=== PATIENT | female | born 1990 | race Caucasian/White ===

== ENCOUNTER 2020-05-26 00:22 | Emergency (ER) | payer OTHER ==
[2020-05-26 00:36] VITALS: BMI 21.9
[2020-05-26] MEDS ORDERED: DIPHTH,PERTUSS(ACELL),TET 0.5 ML DISP.SYRIN IM ONE ×2 (01:07→01:26)
[2020-05-26] MEDS ORDERED: ACETAMINOPHEN 325 MG TABLET (FP) PO ONE (01:08)
[2020-05-26] MEDS ORDERED: ACETAMINOPHEN 325 MG TABLET (FP) ONE (01:26)
[2020-05-26] MEDS ORDERED: CLINDAMYCIN 600MG PREMIX IVPB 600 MG/50 ML BAG IVPB ONE ×2 (01:29→02:13)
[2020-05-26 02:31] LABS: BASO % 0.6 % (0-2.0); EOS % 3.8 % (0-4.5); HEMATOCRIT 28.6 % (32.4-45.2); HEMOGLOBIN 9.7 GM/dL (10.7-15.3); LYMPH % 18.5 % (8-40); MCH 27.8 pg (25.7-33.7); MCHC 33.8 g/dl (32.0-36.0); MEAN CELL VOLUME 82.2 fl (80-96); MONO % 10.4 % (3.8-10.2); NEUT % 66.7 % (42.8-82.8); PLATELET COUNT 171 K/MM3 (134-434); RBC 3.48 M/mm3 (3.60-5.2); WHITE BLOOD COUNT 7.4 K/mm3 (4.0-10.0)
[2020-05-26 02:38] LABS: INR 0.97 (0.83-1.09); PROTHROMBIN TIME (PATIENT) 11.8 SEC (9.7-13.0)
[2020-05-26 02:41] LABS: ACTIVATED PTT 29.9 SECONDS (25.2-36.5)
[2020-05-26 02:53] LABS: POTASSIUM 3.4 mmol/L (3.5-5.1)
[2020-05-26 02:56] LABS: BLOOD UREA NITROGEN 12.1 mg/dL (7-18)
[2020-05-26 02:59] LABS: CREATININE 0.7 mg/dL (0.55-1.3)
[2020-05-26 03:01] LABS: BILIRUBIN,TOTAL 0.4 mg/dL (0.2-1)
[2020-05-26] MEDS ORDERED: KETOROLAC TROMETHAMINE 15 MG/ML VIAL IVPUSH ONE (03:45)
[2020-05-26] MEDS ORDERED: KETOROLAC TROMETHAMINE 15 MG/ML VIAL ONE (03:49)
[2020-05-26 04:14] LABS: HIV INTERPRETATION NEGATIVE (NEGATIVE)
[2020-05-26 09:08] VITALS: BP 114/82; PULSE 85; TEMP 98.5
== END 2020-05-26 09:04 | disposition short-term general hospital (02) ==
LOC: JER 00:22
PROC: 3E03329 Introduction of Other Anti-infective into Peripheral Vein, Percutaneous Approach (ICD-10-PCS; principal; 2020-05-26)
PROC: 3E0333Z Introduction of Anti-inflammatory into Peripheral Vein, Percutaneous Approach (ICD-10-PCS; 2020-05-26)
DX: S61.011A Laceration without foreign body of right thumb without damage to nail, initial encounter (principal); L08.9 Local infection of the skin and subcutaneous tissue, unspecified; R79.82 Elevated C-reactive protein (CRP)
CPT/HCPCS: 36415; 73140-TC-RT-FY; 80053; 84703; 85025; 85610; 85730; 86140; 87040; 87389; 90715; 99285-25

== ENCOUNTER 2020-05-26 18:21 | Inpatient (IN) | payer OTHER ==
[2020-05-26 20:36] VITALS: BMI 21.0
[2020-05-27] MEDS ORDERED: BISMUTH SUBSALICYLATE 524 MG/30 ML UD PO PRN (01:27)
[2020-05-27] MEDS ORDERED: MAGNESIUM CITRATE 300 ML BOTTLE PO PRN (01:27)
[2020-05-27] MEDS ORDERED: NICOTINE POLACRILEX 2 MG GUM BUC PRN (01:27)
[2020-05-27] MEDS ORDERED: MAG HYDROX/AL HYDROX/SIMETH 30 ML UNIT-DOSE CUP PO PRN (01:27)
[2020-05-27] MEDS ORDERED: MENTHOL/PHENOL 1 EACH UD MM PRN (01:27)
[2020-05-27] MEDS ORDERED: ACETAMINOPHEN 325 MG TABLET (FP) PO PRN (01:27)
[2020-05-27] MEDS ORDERED: MAGNESIUM HYDROX 2400MG/30ML ORAL SUSPENSION 30 ML CUP PO PRN (01:27)
[2020-05-27] MEDS ORDERED: cloNIDine HCL 0.1 MG TABLET PO PRN (01:27)
[2020-05-27] MEDS ORDERED: METHADONE HCL 10 MG TABLET (FOR DETOX USE ONLY) PO ONE (01:27)
[2020-05-27] MEDS ORDERED: ONDANSETRON *ODT* 4 MG TABLET SL PRN (01:27)
[2020-05-27] MEDS ORDERED: diazePAM 5 MG TABLET PO PRN (01:27)
[2020-05-27] MEDS ORDERED: METHOCARBAMOL 500 MG TABLET PO PRN (01:27)
[2020-05-27] MEDS: IBUPROFEN 400 MG TABLET (FP) PO PRN ×2 (02:30→18:49)
[2020-05-27] MEDS: diazePAM 5 MG TABLET PO SCH ×4 (06:00→22:43)
[2020-05-27] MEDS: ACETAMINOPHEN 325 MG TABLET (FP) PO PRN ×2 (06:02→22:42)
[2020-05-27] MEDS: PRENATAL VITAMINS W/ FOLIC ACID TABLET (FP) PO SCH (10:25)
[2020-05-27] MEDS: NICOTINE 14 MG/24 HOURS TOPICAL PATCH TD SCH (10:25)
[2020-05-27] MEDS: CLINDAMYCIN HCL 150 MG CAPSULE (FP) PO SCH ×2 (15:55→23:54)
[2020-05-27] MEDS: ARIPiprazole 2 MG TABLET PO SCH (22:43)
[2020-05-27] MEDS: THIAMINE HCL 100 MG TABLET (FP) PO SCH (22:43)
[2020-05-27] MEDS: MELATONIN 5 MG TABLETS PO SCH (22:43)
[2020-05-27] MEDS: CHLORHEXIDINE GLUCONATE 0.12% 15ML CUP MM SCH (23:54)
[2020-05-28] MEDS: diazePAM 5 MG TABLET PO SCH ×3 (06:45→21:49)
[2020-05-28] MEDS: CLINDAMYCIN HCL 150 MG CAPSULE (FP) PO SCH ×3 (07:35→21:48)
[2020-05-28] MEDS ORDERED: METHADONE HCL 5 MG TABLET (FOR DETOX USE ONLY) ONE (09:46)
[2020-05-28] MEDS ORDERED: METHADONE HCL 10 MG TABLET (FOR DETOX USE ONLY) ONE (09:46)
[2020-05-28] MEDS ORDERED: METHADONE (DETOX) 20 MG, METHADONE (DETOX) 5 MG PO ONE (10:00)
[2020-05-28] MEDS: PRENATAL VITAMINS W/ FOLIC ACID TABLET (FP) PO SCH (10:29)
[2020-05-28] MEDS: CHLORHEXIDINE GLUCONATE 0.12% 15ML CUP MM SCH ×2 (10:29→21:48)
[2020-05-28] MEDS: NICOTINE 14 MG/24 HOURS TOPICAL PATCH TD SCH (10:29)
[2020-05-28] MEDS: IBUPROFEN 400 MG TABLET (FP) PO PRN (10:32)
[2020-05-28 11:18] LABS: HEMATOCRIT 29.8 % (32.4-45.2); HEMOGLOBIN 9.9 GM/dL (10.7-15.3); MCH 27.8 pg (25.7-33.7); MCHC 33.3 g/dl (32.0-36.0); MEAN CELL VOLUME 83.5 fl (80-96); MEAN PLT VOLUME 10.6 fl (7.5-11.1); PLATELET COUNT 126 K/MM3 (134-434); RBC 3.57 M/mm3 (3.60-5.2); RDW 14.3 % (11.6-15.6); WHITE BLOOD COUNT 4.7 K/mm3 (4.0-10.0)
[2020-05-28 11:21] LABS: POTASSIUM 4.1 mmol/L (3.5-5.1)
[2020-05-28 11:32] LABS: ALBUMIN 2.5 g/dl (3.4-5.0); BLOOD UREA NITROGEN 13.4 mg/dL (7-18); CALCIUM 8.1 mg/dL (8.5-10.1)
[2020-05-28 11:35] LABS: CREATININE 0.5 mg/dL (0.55-1.3)
[2020-05-28 11:37] LABS: BILIRUBIN,TOTAL 1.3 mg/dL (0.2-1); TOT PROT 5.2 g/dl (6.4-8.2)
[2020-05-28] MEDS ORDERED: MASKS NR ONE (13:31)
[2020-05-28] MEDS: THIAMINE HCL 100 MG TABLET (FP) PO SCH (21:49)
[2020-05-28] MEDS: MELATONIN 5 MG TABLETS PO SCH (21:49)
[2020-05-28] MEDS: ARIPiprazole 2 MG TABLET PO SCH (21:49)
[2020-05-29] MEDS: CLINDAMYCIN HCL 150 MG CAPSULE (FP) PO SCH ×3 (06:38→22:38)
[2020-05-29] MEDS: diazePAM 5 MG TABLET PO SCH ×2 (06:39→18:02)
[2020-05-29] MEDS ORDERED: METHADONE HCL 10 MG TABLET (FOR DETOX USE ONLY) PO ONE (10:00)
[2020-05-29] MEDS: CHLORHEXIDINE GLUCONATE 0.12% 15ML CUP MM SCH ×2 (11:00→22:38)
[2020-05-29] MEDS: NICOTINE 14 MG/24 HOURS TOPICAL PATCH TD SCH (11:00)
[2020-05-29] MEDS: PRENATAL VITAMINS W/ FOLIC ACID TABLET (FP) PO SCH (11:01)
[2020-05-29] MEDS: FERROUS SO4 325 MG TABLET (FP) PO SCH (15:20)
[2020-05-29] MEDS: IBUPROFEN 400 MG TABLET (FP) PO PRN (18:04)
[2020-05-29] MEDS: MELATONIN 5 MG TABLETS PO SCH (22:38)
[2020-05-29] MEDS: THIAMINE HCL 100 MG TABLET (FP) PO SCH (22:38)
[2020-05-29] MEDS: ARIPiprazole 2 MG TABLET PO SCH (22:41)
[2020-05-30] MEDS ORDERED: diazePAM 5 MG TABLET PO ONE (06:00)
[2020-05-30] MEDS: CLINDAMYCIN HCL 150 MG CAPSULE (FP) PO SCH ×3 (06:33→22:25)
[2020-05-30] MEDS ORDERED: METHADONE HCL 5 MG TABLET (FOR DETOX USE ONLY) ONE (08:43)
[2020-05-30] MEDS ORDERED: METHADONE HCL 10 MG TABLET (FOR DETOX USE ONLY) ONE (08:44)
[2020-05-30] MEDS ORDERED: METHADONE (DETOX) 10 MG, METHADONE (DETOX) 5 MG PO ONE (10:00)
[2020-05-30] MEDS: CHLORHEXIDINE GLUCONATE 0.12% 15ML CUP MM SCH ×2 (10:30→22:25)
[2020-05-30] MEDS: PRENATAL VITAMINS W/ FOLIC ACID TABLET (FP) PO SCH (10:30)
[2020-05-30] MEDS: FERROUS SO4 325 MG TABLET (FP) PO SCH (10:30)
[2020-05-30] MEDS: NICOTINE 14 MG/24 HOURS TOPICAL PATCH TD SCH (10:31)
[2020-05-30] MEDS: THIAMINE HCL 100 MG TABLET (FP) PO SCH (22:25)
[2020-05-30] MEDS: MELATONIN 5 MG TABLETS PO SCH (22:25)
[2020-05-30] MEDS: ARIPiprazole 2 MG TABLET PO SCH (22:26)
[2020-05-31] MEDS: CLINDAMYCIN HCL 150 MG CAPSULE (FP) PO SCH ×3 (05:28→22:41)
[2020-05-31] MEDS ORDERED: METHADONE HCL 10 MG TABLET (FOR DETOX USE ONLY) PO ONE (10:00)
[2020-05-31] MEDS: CHLORHEXIDINE GLUCONATE 0.12% 15ML CUP MM SCH ×2 (10:08→22:42)
[2020-05-31] MEDS: FERROUS SO4 325 MG TABLET (FP) PO SCH ×2 (10:08→17:30)
[2020-05-31] MEDS: NICOTINE 14 MG/24 HOURS TOPICAL PATCH TD SCH (10:08)
[2020-05-31] MEDS: PRENATAL VITAMINS W/ FOLIC ACID TABLET (FP) PO SCH (10:09)
[2020-05-31] MEDS ORDERED: hydrOXYzine PAMOATE 50 MG CAPSULE (FP) PO ONE (19:37)
[2020-05-31] MEDS ORDERED: BACITRACIN 0.9 GM PACKET TP SCH (22:00)
[2020-05-31] MEDS: ARIPiprazole 2 MG TABLET PO SCH (22:40)
[2020-05-31] MEDS: THIAMINE HCL 100 MG TABLET (FP) PO SCH (22:41)
[2020-05-31] MEDS: MELATONIN 5 MG TABLETS PO SCH (22:41)
[2020-06-01 00:26] VITALS: BP 105/63; PULSE 61; TEMP 98
[2020-06-01] MEDS ORDERED: METHADONE HCL 5 MG TABLET (FOR DETOX USE ONLY) PO ONE (06:00)
[2020-06-01] MEDS: CLINDAMYCIN HCL 150 MG CAPSULE (FP) PO SCH (07:04)
[2020-06-01] MEDS: FERROUS SO4 325 MG TABLET (FP) PO SCH (07:05)
== END 2020-06-01 09:59 | disposition home or self-care (01) | DRG 773 ==
LOC: YASAS 18:21 → Y6N 05-27 00:14
PROVIDERS: ADMIT Allergy & Immunology; ATTEND Allergy & Immunology
PROC: HZ2ZZZZ Detoxification Services for Substance Abuse Treatment (ICD-10-PCS; principal; 2020-05-27)
DX: F11.23 Opioid dependence with withdrawal (principal); F10.230 Alcohol dependence with withdrawal, uncomplicated; F13.230 Sedative, hypnotic or anxiolytic dependence with withdrawal, uncomplicated; F14.10 Cocaine abuse, uncomplicated; F17.290 Nicotine dependence, other tobacco product, uncomplicated; F25.9 Schizoaffective disorder, unspecified; F19.24 Other psychoactive substance dependence with psychoactive substance-induced mood disorder; F41.9 Anxiety disorder, unspecified; F32.9 Major depressive disorder, single episode, unspecified; D50.9 Iron deficiency anemia, unspecified; Z98.84 Bariatric surgery status; Z90.49 Acquired absence of other specified parts of digestive tract; Z98.890 Other specified postprocedural states; Z56.0 Unemployment, unspecified; Z88.0 Allergy status to penicillin; Z91.013 Allergy to seafood; Z87.74 Personal history of (corrected) congenital malformations of heart and circulatory system
CPT/HCPCS: 36415; 80053; 81025; 85027; 86780; 93005; 93010; C9803; U0003

== ENCOUNTER 2022-09-13 01:47 | Inpatient (IN) | payer SELFPAY ==
[2022-09-13 02:47] VITALS: BMI 19.8
[2022-09-13] MEDS ORDERED: METHOCARBAMOL 500 MG TABLET PO PRN (03:30)
[2022-09-13] MEDS ORDERED: BISMUTH SUBSALICYLATE 524 MG/30 ML PO PRN (03:30)
[2022-09-13] MEDS ORDERED: DICYCLOMINE HCL 10 MG CAPSULE PO PRN (03:30)
[2022-09-13] MEDS ORDERED: BENZONATATE 200 MG CAPSULE PO PRN (03:30)
[2022-09-13] MEDS ORDERED: LOPERAMIDE HCL 2 MG CAPSULE PO PRN (03:30)
[2022-09-13] MEDS ORDERED: guaiFENesin 600 MG TABLET.ER (FP) PO PRN (03:30)
[2022-09-13] MEDS ORDERED: MAG HYDROX/AL HYDROX/SIMETH 30 ML UNIT-DOSE CUP PO PRN (03:30)
[2022-09-13] MEDS ORDERED: NALOXONE HCL (KLOXXADO) 8 MG SPRAY NS PRN (03:30)
[2022-09-13] MEDS ORDERED: hydrOXYzine PAMOATE 25 MG CAPSULE (FP) PO PRN (03:30)
[2022-09-13] MEDS ORDERED: IBUPROFEN 600 MG TABLET (FP) PO PRN (03:30)
[2022-09-13] MEDS ORDERED: MAGNESIUM HYDROX 2400MG/30ML ORAL SUSPENSION 30 ML CUP PO PRN (03:30)
[2022-09-13] MEDS ORDERED: BENZOCAINE/MENTHOL (CHLORASEPTIC ) LOZENGE MM PRN (03:30)
[2022-09-13] MEDS ORDERED: ACETAMINOPHEN 325 MG TABLET (FP) PO PRN (03:30)
[2022-09-13] MEDS ORDERED: ONDANSETRON *ODT* 4 MG TABLET SL PRN (03:30)
[2022-09-13] MEDS ORDERED: POLYETHYLENE GLYCOL (HEALTHYLAX) 3350 17 GM PACKET PO PRN (03:30)
[2022-09-13] MEDS ORDERED: IBUPROFEN 400 MG TABLET (FP) PO PRN (03:30)
[2022-09-13] MEDS ORDERED: NALOXONE HCL 0.4 MG/ML VIAL IM PRN (03:30)
[2022-09-13] MEDS ORDERED: diazePAM 5 MG TABLET PO PRN ×2 (03:34→07:57)
[2022-09-13] MEDS ORDERED: diazePAM 5 MG TABLET PO ONE (07:57)
[2022-09-13] MEDS ORDERED: diphenhydrAMINE HCL 25 MG CAPSULE (FP) PO PRN (09:03)
[2022-09-13] MEDS ORDERED: LORazepam 1 MG TABLET PO PRN (10:31)
[2022-09-13] MEDS ORDERED: SODIUM CHLORIDE NASAL SPRAY 44 ML BOTTLE NS PRN (10:33)
[2022-09-13] MEDS: PRENATAL VITAMINS W/ FOLIC ACID TABLET (FP) PO SCH (10:36)
[2022-09-13] MEDS: NICOTINE 14 MG/24 HOURS TOPICAL PATCH TD SCH (10:37)
[2022-09-13] MEDS: NICOTINE POLACRILEX 2 MG GUM BUC PRN ×2 (10:38→20:03)
[2022-09-13] MEDS ORDERED: diazePAM 5 MG TABLET PO SCH (11:00)
[2022-09-13 11:06] LABS: POTASSIUM 3.4 mmol/L (3.5-5.1)
[2022-09-13] MEDS ORDERED: LORazepam 2 MG/ML SDV VIAL IM ONE (11:07)
[2022-09-13 11:08] LABS: HEMATOCRIT 34.8 % (32.4-45.2); HEMOGLOBIN 11.6 GM/dL (10.7-15.3); MCH 29.2 pg (25.7-33.7); MCHC 33.5 g/dl (32.0-36.0); MEAN CELL VOLUME 87.3 fl (80-96); PLATELET COUNT 200 10^3/uL (134-434); RBC 3.98 M/mm3 (3.60-5.2); RDW 13.2 % (11.6-15.6); WHITE BLOOD COUNT 4.6 K/mm3 (4.0-10.0)
[2022-09-13 11:11] LABS: CALCIUM 9.3 mg/dL (8.5-10.1)
[2022-09-13 11:12] LABS: ALBUMIN 3.7 g/dl (3.4-5.0); BLOOD UREA NITROGEN 12.7 mg/dL (7-18)
[2022-09-13] MEDS ORDERED: levETIRAcetam 500 MG TABLET (FP) PO ONE (11:14)
[2022-09-13 11:17] LABS: BILIRUBIN,TOTAL 0.8 mg/dL (0.2-1); CREATININE 0.7 mg/dL (0.55-1.3); TOT PROT 7.1 g/dl (6.4-8.2)
[2022-09-13] MEDS ORDERED: MAGNESIUM OXIDE 400 MG TABLET (FP) PO ONE (11:17)
[2022-09-13] MEDS ORDERED: POTASSIUM CHLORIDE ORAL LIQUID 20 MEQ/15 ML PO ONE (11:17)
[2022-09-13] MEDS: LORazepam 2 MG TABLET PO SCH ×4 (11:33→22:59)
[2022-09-13] MEDS: FLUTICASONE PROP 0.05% 16 GM NASAL SPRAY NS SCH (11:45)
[2022-09-13] MEDS: FLUoxetine HCL 20 MG CAPSULE PO SCH (11:46)
[2022-09-13 12:03] LABS: MAGNESIUM 1.9 mg/dL (1.8-2.4)
[2022-09-13 12:07] LABS: PHOSPHOROUS 3.3 mg/dL (2.5-4.9)
[2022-09-13] MEDS ORDERED: BACLOFEN 10 MG TABLET (FP) PO PRN (17:45)
[2022-09-13] MEDS ORDERED: BISACODYL 10 MG SUPP.RECT PR ONE (17:57)
[2022-09-13] MEDS ORDERED: BACLOFEN 10 MG TABLET (FP) PO SCH (18:00)
[2022-09-13] MEDS: BACLOFEN 10 MG TABLET (FP) PO SCH ×2 (20:00→22:59)
[2022-09-13] MEDS ORDERED: DOCUSATE SODIUM 100 MG CAPSULE (FP) PO SCH (22:00)
[2022-09-13] MEDS ORDERED: OLANZapine 2.5 MG TABLET PO SCH (22:00)
[2022-09-13] MEDS ORDERED: THIAMINE HCL 100 MG TABLET (FP) PO SCH (22:00)
[2022-09-13] MEDS ORDERED: MELATONIN 5 MG TABLETS PO SCH (22:00)
[2022-09-13] MEDS: GABAPENTIN 100 MG CAPSULE PO SCH (23:31)
[2022-09-14 03:12] VITALS: TEMP 97.7
[2022-09-14] MEDS ORDERED: LORazepam 2 MG/ML SDV VIAL IM ONE (03:45)
[2022-09-14] MEDS: LORazepam 2 MG TABLET PO SCH ×2 (05:55→11:01)
[2022-09-14] MEDS: BACLOFEN 10 MG TABLET (FP) PO SCH ×3 (06:06→14:02)
[2022-09-14] MEDS: GABAPENTIN 100 MG CAPSULE PO SCH ×2 (06:06→14:03)
[2022-09-14 09:09] VITALS: BP 115/65; PULSE 78; RESP 16
[2022-09-14] MEDS: FLUTICASONE PROP 0.05% 16 GM NASAL SPRAY NS SCH (11:00)
[2022-09-14] MEDS: PRENATAL VITAMINS W/ FOLIC ACID TABLET (FP) PO SCH (11:00)
[2022-09-14] MEDS: NICOTINE 14 MG/24 HOURS TOPICAL PATCH TD SCH (11:00)
[2022-09-14] MEDS: FLUoxetine HCL 20 MG CAPSULE PO SCH (11:01)
[2022-09-15] MEDS ORDERED: LORazepam 1 MG TABLET PO SCH (05:00)
[2022-09-15] MEDS ORDERED: BACLOFEN 10 MG TABLET (FP) PO SCH (05:00)
[2022-09-15] MEDS ORDERED: diazePAM 5 MG TABLET PO SCH (06:00)
[2022-09-16] MEDS ORDERED: LORazepam 0.5 MG TABLET PO PRN
[2022-09-16] MEDS ORDERED: LORazepam 0.5 MG TABLET PO SCH (05:00)
[2022-09-16] MEDS ORDERED: diazePAM 5 MG TABLET PO SCH (06:00)
[2022-09-17] MEDS ORDERED: BACLOFEN 10 MG TABLET (FP) PO SCH (05:00)
[2022-09-17] MEDS ORDERED: LORazepam 0.5 MG TABLET PO ONE (05:00)
[2022-09-17] MEDS ORDERED: diazePAM 5 MG TABLET PO ONE (06:00)
[2022-09-19] MEDS ORDERED: BACLOFEN 10 MG TABLET (FP) PO SCH (05:00)
[2022-09-21] MEDS ORDERED: BACLOFEN 10 MG TABLET (FP) PO SCH (05:00)
[2022-09-23] MEDS ORDERED: BACLOFEN 10 MG TABLET (FP) PO SCH (05:00)
[2022-09-25] MEDS ORDERED: BACLOFEN 10 MG TABLET (FP) PO ONE (06:00)
== END 2022-09-14 17:02 | disposition short-term general hospital (02) | DRG 776 ==
LOC: YASAS 01:47 → Y6N 03:41
PROVIDERS: ADMIT Allergy & Immunology; ATTEND Allergy & Immunology
PROC: HZ2ZZZZ Detoxification Services for Substance Abuse Treatment (ICD-10-PCS; principal; 2022-09-13)
DX: F13.230 Sedative, hypnotic or anxiolytic dependence with withdrawal, uncomplicated (principal); F19.280 Other psychoactive substance dependence with psychoactive substance-induced anxiety disorder; F19.282 Other psychoactive substance dependence with psychoactive substance-induced sleep disorder; F19.24 Other psychoactive substance dependence with psychoactive substance-induced mood disorder; F32.9 Major depressive disorder, single episode, unspecified; D50.9 Iron deficiency anemia, unspecified; I37.0 Nonrheumatic pulmonary valve stenosis; R56.9 Unspecified convulsions; Z62.810 Personal history of physical and sexual abuse in childhood; Z91.410 Personal history of adult physical and sexual abuse; Z88.0 Allergy status to penicillin; Z88.1 Allergy status to other antibiotic agents; Z91.013 Allergy to seafood
CPT/HCPCS: 36415; 80053; 81025; 82962; 83735; 84100; 85027; 86780; 87635; 93005; 93010; J0475

== ENCOUNTER 2022-09-13 12:08 | Emergency (ER) | payer SELFPAY ==
[2022-09-13] MEDS ORDERED: SODIUM CHLORIDE 0.9% 500 ML INFUS.BAG IV ONE (13:21)
[2022-09-13 13:45] VITALS: BP 114/80; PULSE 101; RESP 18; TEMP 97.8; BMI 19.5
[2022-09-13] MEDS ORDERED: BACLOFEN 10 MG TABLET (FP) PO ONE (14:03)
[2022-09-13] MEDS ORDERED: diazePAM 5 MG TABLET PO ONE (14:03)
[2022-09-13] MEDS ORDERED: diazePAM 5 MG TABLET ONE (14:06)
[2022-09-13] MEDS ORDERED: BACLOFEN 10 MG TABLET (FP) ONE (14:07)
== END 2022-09-13 16:46 | disposition home or self-care (01) ==
LOC: JER 12:08
DX: F19.230 Other psychoactive substance dependence with withdrawal, uncomplicated (principal)
CPT/HCPCS: 70450-TC; 99284-25; J0475

== ENCOUNTER 2022-09-14 03:23 | Observation (INO) | payer SELFPAY ==
[2022-09-14 04:31] LABS: BASO % 0.6 % (0-2.0); EOS % 2.4 % (0-4.5); HEMATOCRIT 31.8 % (32.4-45.2); HEMOGLOBIN 11.1 GM/dL (10.7-15.3); LYMPH % 19.1 % (8-40); MCH 29.7 pg (25.7-33.7); MCHC 34.8 g/dl (32.0-36.0); MEAN CELL VOLUME 85.3 fl (80-96); MEAN PLT VOLUME 9.8 fl (7.5-11.1); MONO % 10.3 % (3.8-10.2); NEUT % 67.6 % (42.8-82.8); PLATELET COUNT 202 10^3/uL (134-434); RBC 3.72 M/mm3 (3.60-5.2); RDW 13.1 % (11.6-15.6); WHITE BLOOD COUNT 5.7 K/mm3 (4.0-10.0)
[2022-09-14 04:34] LABS: PH,URINE 5.5 (5.0-8.0); URINE APPEARANCE CLEAR; URINE BILIRUBIN NEGATIVE (NEGATIVE); URINE COLOR YELLOW; URINE GLUCOSE (UA) NEGATIVE (NEGATIVE); URINE KETONE NEGATIVE (NEGATIVE); URINE LEUK ESTERASE NEGATIVE (NEGATIVE); URINE NITRITE NEGATIVE (NEGATIVE); URINE PROTEIN NEGATIVE (NEGATIVE)
[2022-09-14 04:44] LABS: COCAINE, UR NEGATIVE (NEGATIVE); OPIATES, URI NEGATIVE (NEGATIVE)
[2022-09-14 04:45] LABS: METHADONE, UR NEGATIVE (NEGATIVE); PHENCYCLIDINE,URINE NEGATIVE (NEGATIVE); URINE BARBITURATES NEGATIVE (NEGATIVE)
[2022-09-14 04:47] LABS: URINE AMPHETAMINES POSITIVE (NEGATIVE); URINE BENZODIAZEPINES POSITIVE (NEGATIVE)
[2022-09-14 04:49] LABS: CHLORIDE 107 mmol/L (98-107); POTASSIUM 3.3 mmol/L (3.5-5.1); SODIUM 142 mmol/L (136-145)
[2022-09-14 04:51] LABS: CALCIUM 8.8 mg/dL (8.5-10.1)
[2022-09-14 04:52] LABS: ALBUMIN 3.6 g/dl (3.4-5.0); ANION GAP 11 MMOL/L (8-16); BLOOD UREA NITROGEN 13.9 mg/dL (7-18); CO2 24 mmol/L (21-32); GLUCOSE,RANDOM 92 mg/dL (74-106); MAGNESIUM 1.9 mg/dL (1.8-2.4)
[2022-09-14 04:55] LABS: CREATININE 0.7 mg/dL (0.55-1.3); SGOT/AST 23 U/L (15-37); SGPT/ALT 19 U/L (13-61)
[2022-09-14 04:56] LABS: TOT PROT 6.6 g/dl (6.4-8.2)
[2022-09-14 04:58] LABS: ALK PHOS 52 U/L (45-117)
[2022-09-14 05:34] LABS: INR 1.12 (0.83-1.09)
[2022-09-14 05:37] LABS: ACTIVATED PTT 30.7 SECONDS (25.2-36.5)
[2022-09-14] MEDS ORDERED: LORazepam 2 MG/ML SDV VIAL IVPUSH PRN (11:53)
[2022-09-14 17:08] VITALS: BP 123/76; PULSE 94; RESP 24; TEMP 98.4; BMI 22.6
[2022-09-15] MEDS ORDERED: ENOXAPARIN NA (PORCINE) 40 MG/0.4 ML DISP.SYRIN SQ SCH (10:00)
== END 2022-09-14 16:30 | disposition left against medical advice (07) ==
LOC: JER 03:23 → JERBED 06:41 → UNDOADMOB 06:41 → INTOOBSV 06:41 → JERBED 11:44 → J4W 14:11
PROVIDERS: ADMIT Internal Medicine Pulmonary Disease; ATTEND Student in an Organized Health Care Education/Training Program
DX: F19.930 Other psychoactive substance use, unspecified with withdrawal, uncomplicated (principal); F15.23 Other stimulant dependence with withdrawal; F53.0 Postpartum depression; Z88.0 Allergy status to penicillin; Z91.013 Allergy to seafood; Z88.8 Allergy status to other drugs, medicaments and biological substances
CPT/HCPCS: 0241U-QW; 36415; 70450-TC; 80053; 80307; 81003; 82962; 83735; 84484; 85025; 85610; 85730; 86850; 86900; 86901; 87086; 93005; 93010; 99285-25; G0378

== ENCOUNTER 2023-03-04 16:31 | Inpatient (IN) | payer OTHER ==
[2023-03-04 16:52] VITALS: BMI 29.9
[2023-03-04] MEDS ORDERED: chlordiazePOXIDE HCL 25 MG CAPSULE PO ONE (18:35)
[2023-03-04] MEDS ORDERED: chlordiazePOXIDE HCL 25 MG CAPSULE PO PRN (18:35)
[2023-03-04] MEDS ORDERED: LOPERAMIDE HCL 2 MG CAPSULE PO PRN (18:37)
[2023-03-04] MEDS ORDERED: BENZOCAINE/MENTHOL (CHLORASEPTIC ) LOZENGE MM PRN (18:37)
[2023-03-04] MEDS ORDERED: POLYETHYLENE GLYCOL (HEALTHYLAX) 3350 17 GM PACKET PO PRN (18:37)
[2023-03-04] MEDS ORDERED: ONDANSETRON *ODT* 4 MG TABLET SL PRN (18:37)
[2023-03-04] MEDS ORDERED: hydrOXYzine PAMOATE 25 MG CAPSULE (FP) PO PRN (18:37)
[2023-03-04] MEDS ORDERED: guaiFENesin 600 MG TABLET.ER (FP) PO PRN (18:37)
[2023-03-04] MEDS ORDERED: MAGNESIUM HYDROX 2400MG/30ML ORAL SUSPENSION 30 ML CUP PO PRN (18:37)
[2023-03-04] MEDS ORDERED: P-EPHED 60MG/TRIPROLIDI 2.5MG TABLET PO PRN (18:37)
[2023-03-04] MEDS ORDERED: DICYCLOMINE HCL 10 MG CAPSULE PO PRN (18:37)
[2023-03-04] MEDS ORDERED: IBUPROFEN 400 MG TABLET (FP) PO PRN (18:37)
[2023-03-04] MEDS ORDERED: BENZONATATE 200 MG CAPSULE PO PRN (18:37)
[2023-03-04] MEDS ORDERED: BISMUTH SUBSALICYLATE 524 MG/30 ML PO PRN (18:37)
[2023-03-04] MEDS ORDERED: MAG HYDROX/AL HYDROX/SIMETH 30 ML UNIT-DOSE CUP PO PRN (18:37)
[2023-03-04] MEDS ORDERED: chlordiazePOXIDE HCL 25 MG CAPSULE ONE (19:48)
[2023-03-04] MEDS: NICOTINE POLACRILEX 2 MG GUM BUC PRN (20:45)
[2023-03-04] MEDS: MELATONIN 5 MG TABLETS PO SCH (22:08)
[2023-03-04] MEDS: levETIRAcetam 500 MG TABLET (FP) PO SCH (22:08)
[2023-03-04] MEDS: THIAMINE HCL 100 MG TABLET (FP) PO SCH (22:08)
[2023-03-04] MEDS: chlordiazePOXIDE HCL 25 MG CAPSULE PO SCH (22:09)
[2023-03-04] MEDS: METHOCARBAMOL 500 MG TABLET PO PRN (22:09)
[2023-03-05] MEDS: chlordiazePOXIDE HCL 25 MG CAPSULE PO SCH ×4 (05:41→22:12)
[2023-03-05] MEDS: NICOTINE POLACRILEX 2 MG GUM BUC PRN (08:25)
[2023-03-05] MEDS: levETIRAcetam 500 MG TABLET (FP) PO SCH ×2 (10:12→22:11)
[2023-03-05] MEDS: PRENATAL VITAMINS W/ FOLIC ACID TABLET (FP) PO SCH (10:12)
[2023-03-05] MEDS: METHOCARBAMOL 500 MG TABLET PO PRN (10:13)
[2023-03-05 11:19] LABS: CHLORIDE 109 mmol/L (98-107); POTASSIUM 3.8 mmol/L (3.5-5.1); SODIUM 139 mmol/L (136-145)
[2023-03-05 11:31] LABS: ALBUMIN 3.5 g/dl (3.4-5.0); BLOOD UREA NITROGEN 19.6 mg/dL (7-18); GLUCOSE,RANDOM 81 mg/dL (74-106); HEMATOCRIT 33.9 % (32.4-45.2); MCH 26.1 pg (25.7-33.7); MCHC 32.5 g/dl (32.0-36.0); MEAN CELL VOLUME 80.1 fl (80-96); MEAN PLT VOLUME 10.1 fl (7.5-11.1); PLATELET COUNT 205 10^3/uL (134-434); RBC 4.23 M/mm3 (3.60-5.2); RDW 14.4 % (11.6-15.6); WHITE BLOOD COUNT 5.1 K/mm3 (4.0-10.0)
[2023-03-05 11:35] LABS: ANION GAP 7 mmol/L (4-13); CO2 23 mmol/L (21-32); SGPT/ALT 23 U/L (13-61)
[2023-03-05 11:36] LABS: CREATININE 0.8 mg/dL (0.55-1.3)
[2023-03-05 11:37] LABS: ALK PHOS 70 U/L (45-117); BILIRUBIN,TOTAL 1.3 mg/dL (0.2-1)
[2023-03-05 11:39] LABS: SGOT/AST 19 U/L (15-37)
[2023-03-05] MEDS: ACETAMINOPHEN 325 MG TABLET (FP) PO PRN (15:05)
[2023-03-05] MEDS: IBUPROFEN 600 MG TABLET (FP) PO PRN (17:25)
[2023-03-05] MEDS ORDERED: OLANZapine 7.5 MG TABLET PO SCH (22:00)
[2023-03-05] MEDS: MELATONIN 5 MG TABLETS PO SCH (22:11)
[2023-03-05] MEDS: THIAMINE HCL 100 MG TABLET (FP) PO SCH (22:11)
[2023-03-06] MEDS: chlordiazePOXIDE HCL 25 MG CAPSULE PO SCH ×2 (05:22→10:11)
[2023-03-06 06:42] VITALS: RESP 16
[2023-03-06] MEDS: IBUPROFEN 600 MG TABLET (FP) PO PRN (09:37)
[2023-03-06] MEDS ORDERED: FLUoxetine HCL 10 MG CAPSULE PO SCH (10:00)
[2023-03-06 10:07] VITALS: BP 100/62; PULSE 90; TEMP 97.5
[2023-03-06] MEDS: PRENATAL VITAMINS W/ FOLIC ACID TABLET (FP) PO SCH (10:09)
[2023-03-06] MEDS: levETIRAcetam 500 MG TABLET (FP) PO SCH (10:09)
[2023-03-06] MEDS: METHOCARBAMOL 500 MG TABLET PO PRN (10:09)
[2023-03-06] MEDS: ACETAMINOPHEN 325 MG TABLET (FP) PO PRN (10:12)
[2023-03-06] MEDS: NICOTINE POLACRILEX 2 MG GUM BUC PRN (11:43)
[2023-03-07] MEDS ORDERED: chlordiazePOXIDE HCL 10 MG CAPSULE PO PRN
[2023-03-07] MEDS ORDERED: chlordiazePOXIDE HCL 10 MG CAPSULE PO SCH (05:00)
[2023-03-08] MEDS ORDERED: chlordiazePOXIDE HCL 10 MG CAPSULE PO SCH (05:00)
[2023-03-09] MEDS ORDERED: chlordiazePOXIDE HCL 10 MG CAPSULE PO ONE (05:00)
== END 2023-03-06 12:30 | disposition left against medical advice (07) | DRG 770 ==
LOC: YASAS 16:31 → Y3N 19:11
PROVIDERS: ADMIT Allergy & Immunology; ATTEND Allergy & Immunology
PROC: HZ2ZZZZ Detoxification Services for Substance Abuse Treatment (ICD-10-PCS; principal; 2023-03-04)
DX: F10.230 Alcohol dependence with withdrawal, uncomplicated (principal); F13.230 Sedative, hypnotic or anxiolytic dependence with withdrawal, uncomplicated; F17.210 Nicotine dependence, cigarettes, uncomplicated; F25.0 Schizoaffective disorder, bipolar type; F19.24 Other psychoactive substance dependence with psychoactive substance-induced mood disorder; F32.A Depression, unspecified; F41.9 Anxiety disorder, unspecified; Z88.0 Allergy status to penicillin; Z88.1 Allergy status to other antibiotic agents
CPT/HCPCS: 36415; 80053; 80307; 81025; 85027; 86780; 87635; Q0162